=== PATIENT | male | born 1950 | race Caucasian/White ===

== ENCOUNTER → 2019-03-03 | Outpatient (CLI) | payer OTHER, BC ==
[~2019-03-03] VITALS: Ht 180.3 cm; Wt 90.7 kg
[~2019-03-03] MED LIST: ACTOS 45 MG45 MG PO; ASPIR 8181 MG PO; AVAPRO 150 MG150 MG PO; CENTRUM SILVER1 EAC4 PO; CINNAMON500 MG PO; LANTUS100 UNIT/M SUBQ; LIPITOR80 MG PO; METFORMIN HCL500 MG PO; MOBIC15 MG PO; PRILOSEC 20 MG20 MG PO; TRULICITY1.5 MG/0.5 SUBQ; VIAGRA25 MG PO; ZETIA10 MG PO
--- NOTE | 2019-03-04 14:06 | PATH ---
[facility] [address] [place] [address] PATHOLOGY RPT PROCEDURE Name: DANDRE MEDELLIN Room #: REG MARGUERITE Tobias#: [id number] ������������������ Admission: 03/03/19 ������������������ Date of : 50 Discharge: Report #: [id number] Path Case #: [id number] [facility] Accession Number: [id number] . 01 Material submitted: . esophagus - BX DISTAL ESOPHAGUS. Modifiers: distal . 01 Clinical history: . 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 02 Diagnosis: Gastroesophageal mucosa, distal esophagus history of Schmidt's, endoscopic biopsy: - Specialized columnar epithelium (gastric cardia-type mucosa) with intestinal metaplasia, consistent with Schmidt's metaplasia. - Negative for dysplasia. - Squamous mucosa showing moderate active esophagitis. . (IUV:mml; 03/04/2019) QLM/03/04/2019 . 02 Comment: The above diagnosis of Schmidt's esophagus is made due to presence of intestinal metaplasia and with the assumption that the biopsies were obtained from the columnar mucosa in the distal esophagus located at least 1 cm proximal to the top of the gastric folds as per the 2016 ACG guidelines. . (IUV:mml; 03/04/2019) . 02 Electronically signed: . Sarai Reynolds MD, Pathologist NPI- [id number] . 01 Gross description: . The specimen is received in formalin, labeled "Dandre Medellin, biopsy distal esophagus". Received is are three segments of pale bautista soft tissue ranging in size from 0.4 to 0.5 cm in maximum dimensions. The specimen is submitted entirely in cassette A1. (CAA; 03/03/2019) QAC/QAC . 02 Pathologist provided ICD-10: K22.70 . 02 [place] [address] PATHOLOGY RPT PROCEDURE Name: DANDRE MEDELLIN Room #: REG MARGUERITE Tobias#: [id number] ������������������ Admission: 03/03/19 ������������������ Date of : 50 Discharge: Report #: [id number] Path Case #: [id number] Specimen Comment: A courtesy copy of this report has been sent to Specimen Comment: [phone], . Specimen Comment: Report sent to / DR COLLIER Performed at: [address], [place], [place] [id number] MD Baljeet Nassar MD Phone: [phone] Performed at: [address] [id number] MD Sarai Reynolds MD Phone: [phone]
--- NOTE | 2019-03-05 08:08 | P ---
[facility] [place] [address] PROCEDURE REPORT Name: DANDRE MEDELLIN [id number] Admission: 03/03/19 ������������������ Attend Phys: Adam Urbina Discharge: ������������������ Date of : 50 Report #: [id number] THIS REPORT FOR: //name// CC: Edil Salomon DATE OF SERVICE: 03/03/2019 PROCEDURE PERFORMED: Upper endoscopy with biopsies. HISTORY OF PRESENT ILLNESS: The patient is a 68-year-old male with a history of Schmidt's. No previous history of endoscopy by myself. His last endoscopy with biopsy was probably approximately 3 years ago. He does take daily Prilosec 40 mg. Denies any significant heartburn or dysphagia. The original Schmidt's apparently was diagnosed in 2009. DESCRIPTION OF PROCEDURE: The risks and benefits of the procedure were explained to the patient, those risks including but not limited to bleeding or perforation, the risk of sedation. He understood these risks and gave informed consent. Sedation was given using propofol per anesthesia. Next, using a standard Olympus upper endoscope, the scope was placed in the patient's mouth and advanced under direct vision through the esophagus, stomach and into the second portion of the duodenum. The upper and mid esophagus was normal in appearance. In the distal esophagus, a couple short segments of Schmidt's were noted. Biopsies were obtained. These extended approximately 1-2 cm above the GE junction. No evidence of esophagitis. Overall, the gastric mucosa was normal; however, there was a moderate amount of food residual in the stomach suggesting the possibility of gastroparesis. The gastric mucosa was normal. The pylorus was normal and patent. The duodenal bulb, first and second portion were all normal. The scope was then withdrawn and the procedure terminated. The patient tolerated the procedure well. IMPRESSION: 1. Short segment Schmidt's. Biopsies obtained. 2. Food residual in the stomach suggesting possible gastroparesis. 3. Otherwise, normal upper endoscopy. RECOMMENDATIONS: 1. Await biopsy results. 2. Continue daily PPI therapy. 3. We will discuss if the patient is having any symptoms of nausea or early satiety, could consider a gastric emptying study in the future. [facility] [address] [place] [address] PROCEDURE REPORT Name: DANDRE MEDELLIN Room #: REG [facility]#: [id number] Admission: 03/03/19 ������������������ Attend Phys: Adam Urbina Discharge: ������������������ Date of : 50 Report #: [id number] Thank you for allowing me to participate in his care. ��������������������������������������������� <ELECTRONICALLY SIGNED> ���������������������������������������� By: Adam Salomon MD ��������������������������������������������� 03/05/19 0808 [id number] Adam Salomon MD /nt
== END | disposition home or self-care (01) ==
LOC: GI 09:25
DX: K22.70 Barrett's esophagus without dysplasia (principal); T18.2XXA Foreign body in stomach, initial encounter; G47.33 Obstructive sleep apnea (adult) (pediatric); I10 Essential (primary) hypertension; E78.5 Hyperlipidemia, unspecified; E11.9 Type 2 diabetes mellitus without complications; K21.9 Gastro-esophageal reflux disease without esophagitis; Z98.890 Other specified postprocedural states; Z85.828 Personal history of other malignant neoplasm of skin; Z88.8 Allergy status to other drugs, medicaments and biological substances; Z79.82 Long term (current) use of aspirin; Z79.899 Other long term (current) drug therapy
CPT/HCPCS: 62110; 62900